=== PATIENT | male | born 1970 | race Caucasian/White ===

== ENCOUNTER 2017-01-23 12:33 | Inpatient (IN) | payer OTHER ==
[2017-01-23 13:17] LABS: Hematocrit 49 % (42-52); Hemoglobin 16.4 g/dl (14.0-18.0); Mean Corpuscular HGB Conc 34 g/dl (31-36); Mean Corpuscular Hemoglobin 31 pg (27-31); Mean Corpuscular Volume 90 fL (80-94); Mean Platelet Volume 9 um3 (7.4-10.4); Red Blood Count 5.37 10^6/ul (4.0-5.4); Red Cell Distribution Width 14 % (10.5-15); White Blood Count 10.2 10^3/ul (3.5-10.8)
[2017-01-23 13:28] LABS: Urine Bilirubin Negative (Negative); Urine Glucose Negative (Negative); Urine Nitrite Negative (Negative)
[2017-01-23 13:30] LABS: ALT 70 U/L (7-52); AST 48 U/L (13-39); Albumin 4.9 g/dL (3.2-5.2); Alkaline Phosphatase 98 U/L (34-104); Anion Gap 10 mmol/L (2-11); BUN/Creatinine Ratio 13.6 (8-20); Blood Urea Nitrogen 15 mg/dL (6-24); CO2 Carbon Dioxide 25 mmol/L (22-32); Calcium 10.3 mg/dL (8.6-10.3); Chloride 103 mmol/L (101-111); EGFR African American 91.9 (>60); EGFR Non-African American 71.4 (>60); Globulin 3.2 g/dL (2-4); Glucose 114 mg/dL (70-100); Potassium 3.9 mmol/L (3.5-5.0); Sodium 138 mmol/L (133-145); Total Protein 8.1 g/dL (6.4-8.9)
[2017-01-23 13:32] LABS: Benzodiazepine Urine Screen Presumptive Positive (None Detect)
[2017-01-23 13:53] LABS: Acetaminophen < 15 mcg/mL; Alcohol < 10 mg/dL (<10); Salicylate < 2.50 mg/dL (<30)
--- NOTE | 2017-01-23 13:58 | RAD ---
HISTORY: Altered mental status COMPARISONS: MRI of the brain dated December 30, 2016 TECHNIQUE: Multiple contiguous axial CT scans were obtained of the head without intravenous contrast. FINDINGS: HEMORRHAGE/INFARCT: There is no hemorrhage or acute infarct. MASSES/SHIFT: There is no mass or shift. EXTRA-AXIAL SPACES: There are no extra-axial fluid collections. SULCI AND VENTRICLES: The sulci and ventricles are normal in size and position for the patient's stated age. CEREBRUM: There are no focal parenchymal abnormalities. BRAINSTEM: There are no focal parenchymal abnormalities. CEREBELLUM: There are no focal parenchymal abnormalities. VESSELS: The vessels are grossly normal. PARANASAL SINUSES: The paranasal sinuses are clear. ORBITS: The orbits are unremarkable. BONES AND SOFT TISSUE: No bone or soft tissue abnormalities are noted. OTHER: None IMPRESSION: NO ACUTE INTRACRANIAL PATHOLOGY.
[2017-01-23 14:06] LABS: TSH (Thyroid Stimulating Horm) 0.86 mcIU/mL (0.34-5.60)
[2017-01-23] MEDS ORDERED: Acetaminophen TAB* 325 MG PO PRN (15:38)
[2017-01-23] MEDS ORDERED: Al Hydrox/Mg Hydrox/Simet LIQ* 30 ML UDC PO PRN (15:38)
--- NOTE | 2017-01-23 15:48 | ED ---
Tameka Butler SooYoung, scribed for Rene Amado MD on 01/23/17 at 1318 . Psychiatric Complaint - HPI Summary HPI Summary: LEVEL 5 CAVEAT: HPI LIMITED DUE TO PT CONDITION, UNRELIABLE NARRATOR. A 46 y/o M presents to ED for MHE. Pt's parents brought him to [facility] but are not in room at this time. Pt was last seen in [facility] on 12/18/16 when he was admitted to the U, released on 01/10/17. Pt states "feeling absolutely fine." He denies SI, HI. PMHx: polysubstance, alcoholism. Denies PMHx. He's had surgeries but did not specify. When asked why was he is in the ED, pt states his parents wanted "notes." Per nurse's note: Pt eloped from [facility] today. - History Of Current Complaint Chief Complaint: EDMentalHealth Time Seen by Provider: 01/23/17 13:03 Hx Obtained From: Patient, Family/Heel Packer, Medical Records Related History: Positive For: Prior Psychiatric Issues - Allergies/Home Medications Allergies/Adverse Reactions: Allergies Allergy/AdvReac Type Severity Reaction Status Date / Time No Known Drug Allergy Allergy See Comment Verified 12/20/16 13:34 Home Medications: Home Medications buPROPion SR TAB* [Wellbutrin SR TAB*] 100 mg PO BID 01/23/17 [History Confirmed 01/23/17] PMH/Surg Hx/FS Hx/Imm Hx Previously Healthy: No Cardiovascular History: Reports: Other Cardiovascular Problems/Disorders - Hx WPW Denies: Hx Pacemaker/ICD Sensory History: Denies: Hx Cataracts, Hx Contacts or Glasses, Hx Hearing Aid Opthamlomology History: Denies: Hx Cataracts, Hx Contacts or Glasses Psychiatric History: Reports: Hx Depression, Hx Bipolar Disorder, Hx of Violent Episodes Against Others, Hx Substance Abuse, Other Psychiatric Issues/Disorders - Hx polysubstance abuse Denies: Hx Panic Disorder - Surgical History Surgery Procedure, Year, and Place: appendectomy; right shoulder ORIF; left ankle ORIF Infectious Disease History: Unable to Obtain/Confirm Infectious Disease History: Denies: Traveled Outside the [place] in Last 30 Days - Family History Known Family History: Positive: Cardiac Disease, Hypertension, Diabetes, Other - [place] - Social History Occupation: Unemployed Lives: With Family Alcohol Use: Daily - heavy daily alcohol use Alcohol Amount: "A few drinks ", unable to say frequency or how many Hx Substance Use: No Substance Use Type: Reports: None Hx Tobacco Use: Yes Smoking Status (MU): Current Every Day Smoker Review of Systems - ROS Summary Review of Systems Summary: LEVEL 5 CAVEAT: ROS LIMITED DUE TO PT CONDITION, UNRELIABLE NARRATOR Negative: Fever Negative: Other - denies: [place], [place] All Other Systems Reviewed And Are Negative: No Physical Exam Triage Information Reviewed: Yes Vital Signs On Initial Exam: Initial Vitals Temp Pulse Resp BP Pulse Ox 98.9 F 95 16 108/80 96 01/23/17 13:02 01/23/17 13:02 01/23/17 13:02 01/23/17 13:02 01/23/17 13:02 Vital Signs Reviewed: Yes Appearance: Positive: Well-Appearing, No Pain Distress Skin: Positive: Warm Head/Face: Positive: Normal Head/Face Inspection Eyes: Positive: EOMI Respiratory/Lung Sounds: Positive: Clear to Auscultation, Breath Sounds Present Cardiovascular: Positive: RRR. Negative: Murmur Abdomen Description: Positive: Nontender Musculoskeletal: Positive: Strength/ROM Intact Neurological: Positive: Sensory/Motor Intact, CN Intact II-III Psychiatric: Positive: Other - the patient is a little agitated, but cooperative , and he does follow all commands, but in coversation seems to thought block Diagnostics - Vital Signs Vital Signs Temp Pulse Resp BP Pulse Ox 01/23/17 13:02 98.9 F 95 16 108/80 96 - Laboratory Lab Results: Lab Results 01/23/17 01/23/17 01/23/17 Range/Units 12:51 12:56 12:56 WBC 10.2 (3.5-10.8) 10^3/ul RBC 5.37 (4.0-5.4) 10^6/ul Hgb 16.4 (14.0-18.0) g/dl Hct 49 (42-52) % MCV 90 (80-94) fL MCH 31 (27-31) pg MCHC 34 (31-36) g/dl RDW 14 (10.5-15) % Plt Count 198 (150-450) 10^3/ul MPV 9 (7.4-10.4) um3 Neut % (Auto) 76.8 (38-83) % Lymph % (Auto) 14.3 L (25-47) % Weld % (Auto) 7.0 (1-9) % Eos % (Auto) 1.1 (0-6) % Baso % (Auto) 0.8 (0-2) % Absolute Neuts (auto) 7.8 H (1.5-7.7) 10^3/ul Absolute Lymphs (auto) 1.5 (1.0-4.8) 10^3/ul Absolute Monos (auto) 0.7 (0-0.8) 10^3/ul Absolute Eos (auto) 0.1 (0-0.6) 10^3/ul Absolute Basos (auto) 0.1 (0-0.2) 10^3/ul Absolute Nucleated RBC 0.01 10^3/ul Nucleated RBC % 0.1 Sodium 138 (133-145) mmol/L Potassium 3.9 (3.5-5.0) mmol/L Chloride 103 (101-111) mmol/L Carbon Dioxide 25 (22-32) mmol/L Anion Gap 10 (2-11) mmol/L BUN 15 (6-24) mg/dL Creatinine 1.10 (0.67-1.17) mg/dL Est GFR ( Amer) 91.9 (>60) Est GFR (Non-Af Amer) 71.4 (>60) BUN/Creatinine Ratio 13.6 (8-20) Glucose 114 H (70-100) mg/dL Calcium 10.3 (8.6-10.3) mg/dL Total Bilirubin 1.00 (0.2-1.0) mg/dL AST 48 H (13-39) U/L ALT 70 H (7-52) U/L Alkaline Phosphatase 98 (34-104) U/L Total Protein 8.1 (6.4-8.9) g/dL Albumin 4.9 (3.2-5.2) g/dL Globulin 3.2 (2-4) g/dL Albumin/Globulin Ratio 1.5 (1-3) TSH Pending Urine Color Yellow Urine Appearance Clear Urine pH 5.0 (5-9) Ur Specific Spencer 1.018 (1.010-1.030) Urine Protein Negative (Negative) Urine Ketones Trace H (Negative) Urine Blood Negative (Negative) Urine Nitrate Negative (Negative) Urine Bilirubin Negative (Negative) Urine Urobilinogen Negative (Negative) Ur Leukocyte Esterase Negative (Negative) Urine Glucose Negative (Negative) Urine Ascorbic Acid * H (Negative) Salicylates Pending Acetaminophen Pending Serum Alcohol Pending Result Diagrams: 01/23/17 12:56 01/23/17 12:56 Lab Statement: Any lab studies that have been ordered have been reviewed, and results considered in the medical decision making process. - CT BRAIN CT CT Interpretation: No Acute Changes - IMPRESSION: No acute intracranial pathology. ED physician has reviewed this radiology report and agrees. CT Interpretation Completed By: Radiologist - EKG 1315 Cardiac Rate: NL EKG Rhythm: Sinus Rhythm - [address] Segment: Normal EKG Interpretation: nml PA, QRS, QT, no STEMI Course/Dx - Course Course Of Treatment: A 46 y/o M presents to ED for MHE. Pt's parents brought him to [facility] but are not in room at this time. Pt was last seen in [facility] on when he was admitted to the [facility], released on 01/10/17. Pt states "feeling absolutely fine." He denies SI, HI. PMHx: polysubstance, alcoholism. Denies PMHx. He's had surgeries but did not specify. When asked why was he is in the ED , pt states his parents wanted "notes." Per nurse's note: Pt eloped from [facility] today. EKG is NSR, no STEMI. Brain CT shows no acute pathology. Pt is medically clear for MHE at 1401. - Differential Dx/Clinical Impression Provider Diagnosis: Psychosis Discharge - Discharge Plan Condition: Good Disposition: PSYCHIATRIC FACILITY-[facility] Referrals: Chaka Koo DO [Primary Care Provider] - The documentation as recorded by the Tameka parker SooYoung accurately reflects the service I personally performed and the decisions made by me, Rene Amado MD.
[2017-01-23] MEDS: Gabapentin CAP(*) 300 MG PO SCH (21:15)
[2017-01-23] MEDS: OLANzapine TAB* 10 MG PO SCH (21:16)
[2017-01-24] MEDS: Gabapentin CAP(*) 300 MG PO SCH ×2 (08:27→13:51)
[2017-01-24] MEDS: Citalopram TAB* 20 MG PO SCH (08:28)
[2017-01-24] MEDS: Haloperidol TAB* 5 MG PO PRN ×3 (08:28→20:23)
[2017-01-24] MEDS: Nadolol TAB* 40 MG PO SCH (08:28)
[2017-01-24] MEDS ORDERED: Nicotine GUM* 2 MG PO PRN (13:09)
[2017-01-24] MEDS: Nicotine Inhaler* 10 MG AMP INH PRN ×2 (13:54→16:25)
[2017-01-24] MEDS ORDERED: Mouth Piece, Nicotine* 1 EACH CARTRIDGE ONE (13:56)
[2017-01-24] MEDS ORDERED: Mouth Piece, Nicotine* 1 EACH CARTRIDGE INH ONE (14:00)
--- NOTE | 2017-01-24 18:52 | RAD ---
Indication: Psychiatric disorder nonspecified. Comparison: January 23, 2017 CT. Technique: Noncontrast CT vertex of skull through foramen magnum. Report: The sulci, ventricles, and basal cisterns are normal for age. Sales matter white matter differentiation is preserved without evidence for edema. No intra or extra axial hemorrhage is detected. Unremarkable visualized orbital contents. Negative for calvarial or skull base fracture. Mild RIGHT frontal scalp edema without change. Retained secretions or mucosal thickening at the RIGHT sphenoid sinus without change. Negative for paranasal sinus fluid levels. Clear visualized mastoid air spaces. IMPRESSION: 1. No traumatic brain injury or acute intracranial process evident. 2. Mild RIGHT frontal scalp edema without change. 3. Mucosal sinus disease versus retained secretions at the RIGHT sphenoid sinus without change.
[2017-01-24] MEDS: Gabapentin CAP(*) 100 MG PO SCH (20:22)
[2017-01-24] MEDS: OLANzapine TAB* 10 MG PO SCH (20:23)
--- NOTE | 2017-01-24 23:13 | HP ---
PSYCHIATRIC HISTORY AND PHYSICAL: DATE OF ADMISSION: 01/23/17 JUSTIFICATION FOR ADMISSION: The patient is in need of 24-hour supervision and care secondary to confusion, agitation, and inability to care for himself in a less restrictive setting. CHIEF COMPLAINT: "I think I took some Valium, I am not going to do that anymore." HISTORY OF PRESENT ILLNESS: The patient is a 46-year-old white male with a history of chronic substance abuse disorders and a recent history of bipolar disorder, who was just discharged from the behavioral science unit on 01/10/17, who now arrives back on 9.41 status secondary to bizarre confused behavior with inability to care for himself. Apparently, the patient had been at [facility] on the morning of admission and had run away when he realized that they were planning on transferring him to [facility]. From there, his parents were able to locate him in the community and drive him back to [facility]. According to his parents, he appeared fine on Friday and then was unreachable Friday and Friday showing up at their house on the morning of admission after walking 2 miles without issues and no jacket on. He kept making the statement "read my furnace" over and over again and this is when they decided to bring him back to the hospital. He presented as highly confused, not able to complete sentences or communicate even single words in a coherent fashion. When he was asked where he was, he responded that he was in an ambulance. During his initial observation, he was minimizing of symptoms and declining the offer of admission. We were able to reach his current roommate, a woman named Seema, who indicated that the patient had smelled like alcohol on Friday and then had slept most of the day on Friday and Friday. She observed that he did wake up on Friday for 2 hours, vomited on the floor, and then went back to sleep. The patient was not easily aroused and when woken, felt right back to sleep. On the morning of admission, the patient woke up again and threw up and was confused. We asked her to look in his room for his medications and it was difficult for her to say whether anything was missing given the fact that many of his pills were mixed together. She later called back stating that she had found a bottle of a drug called Phenibut, which is an anxiolytic that the patient had ordered online on . Although there were 400 total servings in the bottle, the bottle was already two-thirds gone. She suspects that the patient was abusing this drug. A later review of online research indicates that Phenibut is a sedative that is available in health food stores. It is similar to the prescription medication gabapentin. When I interviewed the patient, he is confused and distractible. He minimizes his use of Phenibut, but does tell me that he was abusing Valium, which he bought from a friend. I asked him if he is willing to go rehab at this time and he denies this. The patient denies any active mood symptoms including depression, anxiety, or giuseppe. It is notable that when he was discharged on 01/10/17 from my service, the plan was for him to go to the [facility] in [place], [place]. Unfortunately when he arrived there, he declined to sign himself involuntarily and called a friend to have him pick him up and returned to the [facility] where he has staying with his friend, Seema. PAST PSYCHIATRIC HISTORY: The patient was admitted on my service here at [facility] from 12/18/16 to 01/10/17. Prior to this, he was seen at the [facility] by a physician's fundraising assistant named, "Viki Li." His most recent diagnosis is bipolar disorder. He denies any past history of suicide attempts. PAST MEDICAL/SURGICAL HISTORY: The patient has Mlsrq-Upctmugtt-Hrgak syndrome. He has also had surgery on his right shoulder with a metal plate. In addition , he has a recent history of acute sinusitis. MEDICATIONS: Currently are: 1. Nadolol 40 mg p.o. daily. 2. Gabapentin 600 mg p.o. t.i.d. 3. Citalopram 20 mg p.o. daily. 4. Olanzapine 10 mg p.o. q.h.s. ALLERGIES: He has no known drug allergies. FAMILY HISTORY: The patient's maternal uncle committed suicide at the age of 16. The patient also has paternal cousins with alcoholism. SUBSTANCE ABUSE HISTORY: The patient had a DWI around 2008 or 2009 and had gone to drug court as a result of this and was sent to rehab. He has been to rehab twice at [facility] in [place] and once to the rehab at [facility] in [place], [place]. Three and a half years ago, he was in a alf house. The patient abuses cannabis infrequently. Ten years ago, he had problems with cocaine and heroin, but apparently has not been using these recently. He is an on-and-off tobacco abuser, who is currently xlww-y-oyzy-a-day smoker. He does admit to infrequent use of methamphetamines. He also will abuse benzodiazepines and another sedative hypnotics that he gets either from friends or purchases online. SOCIAL HISTORY: The patient was born in [place], but moved to [place] at the age of 15. From there, he moved to [place] along with his parents and then moved to [place] in 1999. He does have bachelor's degree from [employer] [place] [employer] with a major in philosophy. He was once, but at the age of 26. He has no children. The patient worked for a long time in computer repair and in software engineering. His most recent job was at the [employer], which he stopped working at approximately 2 years ago. 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 He does receive Medicaid. He is currently single, but he is sexually active with a female friend. He has been diagnosed in the past with herpes simplex, type 1. The patient is not mu-ism, but he grew up [employer]. He does have a legal history of DWI in 2009, but also a history of trespassing while intoxicated for which he served 3 months in the [facility]. REVIEW OF SYSTEMS: The patient denies headache or double vision. He denies sore throat, cough, chest pain, cough, or difficulty breathing. He denies abdominal pain, nausea, vomiting, diarrhea, or constipation. He denies difficulty ambulating, enlarged lymph nodes, rashes, fevers, or changes in weight. PHYSICAL EXAMINATION VITALS: Blood pressure 136/89, heart rate 63, respiratory rate 16, temperature 97.6 degrees Fahrenheit, oxygen saturations are 98% on room air. HEENT: Head is normocephalic, atraumatic. NECK: Supple. CHEST: Clear to auscultation bilaterally. ABDOMEN: Soft and nontender. MUSCULOSKELETAL: Reveals no sign of edema. NEUROLOGICAL: He is grossly intact with no focal deficits. SKIN: Warm and dry. MENTAL STATUS EXAMINATION: The patient is a middle-aged white male wearing blue scrubs, who is disheveled walking around with a wide-based gait, appears to be somewhat irritable, but is otherwise cooperative. Speech is impoverished and he appears to be confused. His mood is somewhat irritable with a blunted affect. Thought process is disorganized. Thought content is significant for his desire to leave the hospital. He denies suicidal or homicidal ideations. He denies auditory or visual hallucinations. Insight and judgment are poor given his continued abuse of substances following his most recent discharge. Cognitively, he is awake but not particularly alert. He is disoriented to time , place, and situation. LABORATORY DATA: CBC is within normal limits. Complete metabolic panel demonstrates that his AST is elevated at 48, ALT elevated at 70. TSH normal at 0.86. Urinalysis is within normal limits. Urine toxicology is positive for benzodiazepines. DIAGNOSES: As follows: [place] I: Delirium secondary to sedative hypnotic, alcohol use disorder by history, bipolar disorder by history. [place] II: Deferred. [place] III: Wgwvl-Ciikrjfmv-Yctty syndrome, history of right shoulder surgery, history of recurrent sinusitis. [place] IV: Moderate primary support and financial stressors. [place] V: At this time is 25. IMPRESSION: The patient is a 46-year-old white male with a history of alcoholism and another substance abuse issues as well as bipolar disorder, who was recently discharged from [facility] on 01/10/17, who now returns appearing to be grossly confused and unable to account for his actions. We understand through his roommate that he has purchased a bottle of a sedative hypnotic that is available over-the- counter and he has already consumed two-thirds of a 400- tablet supply despite the fact that he only received this on 01/15/17. The patient is only stating that he has been abusing Valium, but it is clear that he has been abusing sedatives and hypnotics as well. He is declining the offer of inpatient rehab at this time. PLAN: The patient is readmitted to the adult behavioral health unit where he is placed on q.15-minute checks for his own safety. We have resumed his medications including nadolol, gabapentin which we will reduce to 200 mg t.i.d. , olanzapine 10 mg nightly, and citalopram 20 mg daily. We will try to get further collateral information from his roommate, Seema, as well as his parents, Tito and Leonor Fields. If we could have them come in for a family meeting, perhaps we could try to persuade the patient to change his mind and actually accept inpatient rehab at this time. While he is here, he is certainly encouraged to avail himself of all milieu activities including individual and group psychotherapies. I will get another head CT to rule out any structural problems and to make sure that his sinusitis is resolved. [id number]/[facility] #: [id number] [place]
[2017-01-25] MEDS: Nicotine Inhaler* 10 MG AMP INH PRN ×2 (06:50→09:08)
[2017-01-25] MEDS: Haloperidol TAB* 5 MG PO PRN ×2 (06:50→13:03)
[2017-01-25] MEDS: Gabapentin CAP(*) 100 MG PO SCH ×3 (08:34→20:11)
[2017-01-25] MEDS: Nadolol TAB* 40 MG PO SCH (08:35)
[2017-01-25] MEDS: Citalopram TAB* 20 MG PO SCH (08:35)
[2017-01-25] MEDS ORDERED: Influenza VAC *QUAD* 2017-18* 0.5 ML SYRINGE IM ONE (09:00)
[2017-01-25] MEDS: OLANzapine TAB* 10 MG PO SCH (20:12)
[2017-01-26] MEDS: Citalopram TAB* 20 MG PO SCH (07:54)
[2017-01-26] MEDS: Gabapentin CAP(*) 100 MG PO SCH ×3 (07:54→20:47)
[2017-01-26] MEDS: Nadolol TAB* 40 MG PO SCH (07:55)
[2017-01-26] MEDS: Nicotine Inhaler* 10 MG AMP INH PRN (10:24)
[2017-01-26] MEDS: Haloperidol TAB* 5 MG PO PRN (11:54)
--- NOTE | 2017-01-26 17:31 | PN ---
Subjective - Subjective Service Type: 03614 Hosp care 15 min low complexity Subjective: Yan says he is feeling much better than yesterday. Yesterday he thought he was experiencing withdrawal symptoms from decreased doses of Gabapentin. Denies hallucinations, delusions, SI or HI. Ambivalent about attending rehab post discharge but may go to AA meetings. Objective - Appearance Appearance: Well Developed/Nourished Dysmorphic Features: No Hygiene: Normal Grooming: Fairly Well Kept - Behavior Psychomotor Activities: Normal Exhibits Abnormal Movement: No - Attitude and Relatedness Attitude and Relatedness: Appropriate Eye Contact: Good - Speech Quality: Unpressured Latencies: Normal Quantity: Appropriate - Mood Patient's Decription of Mood: "Fine" - Affect Observed Affect: Constricted Affect Consistent with: Dysphoria - Thought Process Patient's Thought Process: Coherent, Goal Directed Thought Content: No Passive Wish, No Suicidal Planning, No Homicidal Ideation, No Paranoid Ideation - Sensorium Experiencing Hallucinations: No, Sensorium is Clear Type of Hallucinations: Visual: No, Auditory: No, Command: No - Level of Consciousness Level of Consciousness: Alert Orientation: Yes Intact, Yes Orientated to Time, Yes Orientated to Place, Yes Orientated to Person - Impulse Control Impulse Control: Intact - Insight and Judgement Insight and Judgement: Fair - Group Participation Particating in Group Activities: Yes - Medication Management Medication Management Adherence: Yes Assessment - Assessment Merits Inpatient Hospitalization: For Stabilization, Consolidate Improvements, For Discharge Planning Plan - Plan Treatment Plan: Name: YAN LEE Birthdate: 1970 [id number] Continued Medication Management: Continue Outpt Medication Medications: Current Medications Acetaminophen (Tylenol Tab*) 650 mg PO Q4H PRN PRN Reason: for pain; or Temp >101 F Last Admin: 01/25/17 12:20 Dose: 650 mg Al Hydrox/Mg Hydrox/Simethicone (Maalox Plus*) 30 ml PO Q4H PRN PRN Reason: INDIGESTION Last Admin: 01/25/17 12:22 Dose: 30 ml Citalopram Hydrobromide (Celexa Tab*) 20 mg PO DAILY [facility] Last Admin: 01/26/17 07:54 Dose: 20 mg Gabapentin (Neurontin Cap(*)) 200 mg PO TID [facility] Last Admin: 01/26/17 13:55 Dose: 200 mg Haloperidol (Haldol Tab*) 5 mg PO Q6H PRN PRN Reason: AGITATION Last Admin: 01/26/17 11:54 Dose: 5 mg Nadolol (Corgard Tab*) 40 mg PO DAILY [facility] Last Admin: 01/26/17 07:55 Dose: 40 mg Nicotine (Nicotine Inhaler*) 10 mg INH Q2H PRN PRN Reason: CRAVING Last Admin: 01/26/17 10:24 Dose: 10 mg Nicotine Polacrilex (Nicotine Gum*) 2 mg PO Q2H PRN PRN Reason: CRAVING Last Admin: 01/26/17 13:55 Dose: 2 mg Olanzapine (Zyprexa Tab*) 10 mg PO BEDTIME ESTEBAN Last Admin: 01/25/17 20:12 Dose: 10 mg - Discharge Plan Discharge Plan: Drug/Alcohol Rehab
[2017-01-26] MEDS: OLANzapine TAB* 10 MG PO SCH (20:46)
[2017-01-27] MEDS: Gabapentin CAP(*) 100 MG PO SCH ×2 (08:23→13:16)
[2017-01-27] MEDS: Nadolol TAB* 40 MG PO SCH (08:24)
[2017-01-27] MEDS: Citalopram TAB* 20 MG PO SCH (08:24)
--- NOTE | 2017-01-27 11:58 | PN ---
[facility]: Group Therapy Note - Service Type Service Type: 47835 Group Psychotherapy - Cognitive Behavioral Group Therapy ( CBT):Patient was attentive and participatory in CBT programming this morning, and remained in good behavioral control. Patient expressed positive insights regarding relevant treatment interventions and goals.
--- NOTE | 2017-01-27 14:34 | PN ---
Subjective - Subjective Service Type: 63653 Hosp care 15 min low complexity Subjective: Yan appears to be more coherent today, has been attending groups and is displaying neither confusion nor paranoid thinking. I spoke with his friend, Seema, with whom he was staying between admissions, and she indicates that his needs are greater than what she can accommodate, and that he can no longer stay with her. I also spoke with his mother, Leonor Lee, who is steadfastly not allowing him to return to live on any of her properties in his current state. Both sources of collateral are strongly supportive of transferring Yan to an inpatient substance abuse facility after psychiatric treatment is complete. Yan is confronted with this information and is agreeable with rehab referral. He complains of poor sleep since his gabapentin was lowered but has no other acute problems. Objective - Appearance Appearance: Well Developed/Nourished Dysmorphic Features: No Hygiene: Normal Grooming: Fairly Well Kept - Behavior Psychomotor Activities: Normal Exhibits Abnormal Movement: No - Attitude and Relatedness Attitude and Relatedness: Cooperative Eye Contact: Fair - Speech Quality: Unpressured Latencies: Normal Quantity: Appropriate - Mood Patient's Decription of Mood: "Fine" - Affect Observed Affect: Fair Affect Consistent with: Euthymia - Thought Process Patient's Thought Process: Coherent Thought Content: No Passive Wish, No Suicidal Planning, No Homicidal Ideation, No Paranoid Ideation - Sensorium Experiencing Hallucinations: No, Sensorium is Clear Type of Hallucinations: Visual: No, Auditory: No, Command: No - Level of Consciousness Level of Consciousness: Alert Orientation: Yes Intact, Yes Orientated to Time, Yes Orientated to Place, Yes Orientated to Person - Impulse Control Impulse Control: Tenuous - Insight and Judgement Insight and Judgement: Fair - Group Participation Particating in Group Activities: Yes - Medication Management Medication Management Adherence: Yes Assessment - Assessment Merits Inpatient Hospitalization: For Immediate Safety, For Stabilization 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 , white male with a history of alcohol and illicit substance abuse, as well as putative bipolar disorder, recently [facility], readmitted to the unit secondary to confusion and psychosis in the setting of overdose on OTC sedative-hypnotics purchased online. Plan - Plan Treatment Plan: Name: YAN LEE Birthdate: 1970 [id number] We have resumed medications such as gabapentin, citalopram, nadolol and olanzapine. Will increase gabapentin to 300mg PO TID. Patient willing to be transferred to inpatient drug rehab. Continue inpatient care. Continued Medication Management: Continue Outpt Medication Medications: Current Medications Acetaminophen (Tylenol Tab*) 650 mg PO Q4H PRN PRN Reason: for pain; or Temp >101 F Last Admin: 01/25/17 12:20 Dose: 650 mg Al Hydrox/Mg Hydrox/Simethicone (Maalox Plus*) 30 ml PO Q4H PRN PRN Reason: INDIGESTION Last Admin: 01/25/17 12:22 Dose: 30 ml Citalopram Hydrobromide (Celexa Tab*) 20 mg PO DAILY [facility] Last Admin: 01/27/17 08:24 Dose: 20 mg Haloperidol (Haldol Tab*) 5 mg PO Q6H PRN PRN Reason: AGITATION Last Admin: 01/26/17 11:54 Dose: 5 mg Nadolol (Corgard Tab*) 40 mg PO DAILY [facility] Last Admin: 01/27/17 08:24 Dose: 40 mg Nicotine (Nicotine Inhaler*) 10 mg INH Q2H PRN PRN Reason: CRAVING Last Admin: 01/26/17 10:24 Dose: 10 mg Nicotine Polacrilex (Nicotine Gum*) 2 mg PO Q2H PRN PRN Reason: CRAVING Last Admin: 01/26/17 13:55 Dose: 2 mg Olanzapine (Zyprexa Tab*) 10 mg PO BEDTIME [facility] Last Admin: 01/26/17 20:46 Dose: 10 mg - Discharge Plan Discharge Plan: Drug/Alcohol Rehab
[2017-01-27] MEDS: OLANzapine TAB* 10 MG PO SCH (21:55)
[2017-01-27] MEDS: Gabapentin CAP(*) 300 MG PO SCH (21:55)
[2017-01-28] MEDS: Gabapentin CAP(*) 300 MG PO SCH (08:06)
[2017-01-28] MEDS: Nadolol TAB* 40 MG PO SCH (08:07)
[2017-01-28] MEDS: Citalopram TAB* 20 MG PO SCH (08:07)
[2017-01-28] MEDS: Nicotine Inhaler* 10 MG AMP INH PRN (08:07)
--- NOTE | 2017-01-28 13:57 | PN ---
Subjective - Subjective Service Type: [id number] Hosp care 15 min low complexity Subjective: Yan is calm, cooperative, oriented and visible on the unit. He has agreed to referral to one of the surrounding inpatient drug rehab programs in the region, but is skeptical about getting accepted in a timely manner. "I know it' s getting colder outside and it's always harder to find a bed when that happens. " He denies any acute complaints today and feels that he's ready for discharge to a lower level of care whenever a disposition can be made. He denies SI or HI and there is no evidence of further psychosis. Objective - Appearance Appearance: Well Developed/Nourished Dysmorphic Features: No Hygiene: Normal Grooming: Fairly Well Kept - Behavior Psychomotor Activities: Normal Exhibits Abnormal Movement: No - Attitude and Relatedness Attitude and Relatedness: Cooperative Eye Contact: Fair - Speech Quality: Unpressured Latencies: Normal Quantity: Appropriate - Mood Patient's Decription of Mood: "Good" - Affect Observed Affect: Fair Affect Consistent with: Euthymia - Thought Process Patient's Thought Process: Coherent Thought Content: No Passive Wish, No Suicidal Planning, No Homicidal Ideation, No Paranoid Ideation - Sensorium Experiencing Hallucinations: No, Sensorium is Clear Type of Hallucinations: Visual: No, Auditory: No, Command: No - Level of Consciousness Level of Consciousness: Alert Orientation: Yes Intact, Yes Orientated to Time, Yes Orientated to Place, Yes Orientated to Person - Impulse Control Impulse Control: Tenuous - Insight and Judgement Insight and Judgement: Fair - Group Participation Particating in Group Activities: Yes - Medication Management Medication Management Adherence: Yes Assessment - Assessment Merits Inpatient Hospitalization: Consolidate Improvements, Pending Safe DC Plan 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 , white male with a history of alcohol and illicit substance abuse, as well as putative bipolar disorder, recently [facility] from the [facility] on [facility], readmitted to the unit secondary to confusion and psychosis in the setting of overdose on OTC sedative-hypnotics purchased online. Plan - Plan Treatment Plan: Name: YAN LEE Birthdate: 1970 [id number] We have resumed medications such as gabapentin, citalopram, nadolol and olanzapine. Will increase gabapentin to 400mg PO TID. Patient willing to be transferred to inpatient drug rehab. Continue inpatient care. Continued Medication Management: Continue Outpt Medication Medications: Current Medications Acetaminophen (Tylenol Tab*) 650 mg PO Q4H PRN PRN Reason: for pain; or Temp >101 F Last Admin: 01/25/17 12:20 Dose: 650 mg Al Hydrox/Mg Hydrox/Simethicone (Maalox Plus*) 30 ml PO Q4H PRN PRN Reason: INDIGESTION Last Admin: 01/25/17 12:22 Dose: 30 ml Citalopram Hydrobromide (Celexa Tab*) 20 mg PO DAILY [facility] Last Admin: 01/28/17 08:07 Dose: 20 mg Haloperidol (Haldol Tab*) 5 mg PO Q6H PRN PRN Reason: AGITATION Last Admin: 01/26/17 11:54 Dose: 5 mg Nadolol (Corgard Tab*) 40 mg PO DAILY [facility] Last Admin: 01/28/17 08:07 Dose: 40 mg Nicotine (Nicotine Inhaler*) 10 mg INH Q2H PRN PRN Reason: CRAVING Last Admin: 01/28/17 08:07 Dose: 10 mg Nicotine Polacrilex (Nicotine Gum*) 2 mg PO Q2H PRN PRN Reason: CRAVING Last Admin: 01/26/17 13:55 Dose: 2 mg Olanzapine (Zyprexa Tab*) 10 mg PO BEDTIME [facility] Last Admin: 01/27/17 21:55 Dose: 10 mg - Discharge Plan Discharge Plan: Drug/Alcohol Rehab
[2017-01-28] MEDS: Gabapentin CAP(*) 400 MG PO SCH ×2 (14:07→20:36)
--- NOTE | 2017-01-28 14:57 | PN ---
MHU: Group Therapy Note - Service Type Service Type: [id number] Group Psychotherapy - Cognitive Behavioral Group Therapy ( CBT):Patient was attentive and participatory in CBT programming this morning, and remained in good behavioral control. Patient expressed positive insights regarding relevant treatment interventions and goals.
[2017-01-28] MEDS: OLANzapine TAB* 10 MG PO SCH (20:36)
[2017-01-29] MEDS: Gabapentin CAP(*) 400 MG PO SCH ×3 (08:27→21:12)
[2017-01-29] MEDS: Nadolol TAB* 40 MG PO SCH (08:27)
[2017-01-29] MEDS: Citalopram TAB* 20 MG PO SCH (08:27)
--- NOTE | 2017-01-29 11:39 | PN ---
MHU: Group Therapy Note - Service Type Service Type: [id number] Group Psychotherapy - Cognitive Behavioral Group Therapy ( CBT):Patient was attentive and participatory in CBT programming this morning, and remained in good behavioral control. Patient expressed positive insights regarding relevant treatment interventions and goals.
--- NOTE | 2017-01-29 12:23 | PN ---
Subjective - Subjective Service Type: 11094 Hosp care 15 min low complexity Subjective: Yan is seen along with LYDIA Tamara for routine follow up. He has been accepted for transfer at the [facility] rehab in [place], [place] with bed availability on February 05. The patient is confronted about his choice to walk out of [facility] earlier this month, after he had been discharged from the [facility] to that facility. "I hear what you guys are saying and, right now, that's not how I feel. I want to go to the program. It wasn't my first choice. I was hoping I could do this as an outpatient, but I'm back here now and I have to deal with that." He denies SI or HI. Objective - Appearance Appearance: Well Developed/Nourished Dysmorphic Features: No Hygiene: Normal Grooming: Fairly Well Kept - Behavior Psychomotor Activities: Normal Exhibits Abnormal Movement: No - Attitude and Relatedness Attitude and Relatedness: Cooperative Eye Contact: Fair - Speech Quality: Unpressured Latencies: Normal Quantity: Appropriate - Mood Patient's Decription of Mood: "Okay" - Affect Observed Affect: Fair Affect Consistent with: Euthymia - Thought Process Patient's Thought Process: Coherent Thought Content: No Passive Wish, No Suicidal Planning, No Homicidal Ideation, No Paranoid Ideation - Sensorium Experiencing Hallucinations: No, Sensorium is Clear Type of Hallucinations: Visual: No, Auditory: No, Command: No - Level of Consciousness Level of Consciousness: Alert Orientation: Yes Intact, Yes Orientated to Time, Yes Orientated to Place, Yes Orientated to Person - Impulse Control Impulse Control: Tenuous - Insight and Judgement Insight and Judgement: Fair - Group Participation Particating in Group Activities: Yes - Medication Management Medication Management Adherence: Yes Assessment - Assessment Merits Inpatient Hospitalization: Consolidate Improvements, Pending Safe DC Plan 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 , white male with a history of alcohol and illicit substance abuse, as well as putative bipolar disorder, recently discharged from the [facility] on 01/11/17, readmitted to the unit secondary to confusion and psychosis in the setting of overdose on OTC sedative-hypnotics purchased online. Plan - Plan Treatment Plan: Name: YAN LEE Birthdate: 1970 [id number] We have resumed medications such as gabapentin, citalopram, nadolol and olanzapine. Patient is awaiting transfer to [facility] inpatient rehab on Friday , February 05. Continue inpatient care. Continued Medication Management: Continue Outpt Medication Medications: Current Medications Acetaminophen (Tylenol Tab*) 650 mg PO Q4H PRN PRN Reason: for pain; or Temp >101 F Last Admin: 01/25/17 12:20 Dose: 650 mg Al Hydrox/Mg Hydrox/Simethicone (Maalox Plus*) 30 ml PO Q4H PRN PRN Reason: INDIGESTION Last Admin: 01/25/17 12:22 Dose: 30 ml Citalopram Hydrobromide (Celexa Tab*) 20 mg PO DAILY [facility] Last Admin: 01/29/17 08:27 Dose: 20 mg Gabapentin (Neurontin Cap(*)) 400 mg PO TID [facility] Last Admin: 01/29/17 08:27 Dose: 400 mg Haloperidol (Haldol Tab*) 5 mg PO Q6H PRN PRN Reason: AGITATION Last Admin: 01/26/17 11:54 Dose: 5 mg Nadolol (Corgard Tab*) 40 mg PO DAILY [facility] Last Admin: 01/29/17 08:27 Dose: 40 mg Nicotine (Nicotine Inhaler*) 10 mg INH Q2H PRN PRN Reason: CRAVING Last Admin: 01/28/17 08:07 Dose: 10 mg Nicotine Polacrilex (Nicotine Gum*) 2 mg PO Q2H PRN PRN Reason: CRAVING Last Admin: 01/26/17 13:55 Dose: 2 mg Olanzapine (Zyprexa Tab*) 10 mg PO BEDTIME [facility] Last Admin: 01/28/17 20:36 Dose: 10 mg - Discharge Plan Discharge Plan: Drug/Alcohol Rehab
[2017-01-29] MEDS: OLANzapine TAB* 10 MG PO SCH (21:12)
[2017-01-30] MEDS: Nadolol TAB* 40 MG PO SCH (08:02)
[2017-01-30] MEDS: Gabapentin CAP(*) 400 MG PO SCH ×3 (08:02→21:09)
[2017-01-30] MEDS: Citalopram TAB* 20 MG PO SCH (08:03)
[2017-01-30] MEDS: Nicotine Inhaler* 10 MG AMP INH PRN (11:46)
--- NOTE | 2017-01-30 12:26 | PN ---
Subjective - Subjective Service Type: [id number] Hosp care 15 min low complexity Subjective: Yan is in good spirits today and looking [place] [facility] "I got on the computer and looked at their website and it's making me feel better about going there. I even found a youtube video about a patient that went there and it really helped him, so that was good." He continues to deny SI or HI. Objective - Appearance Appearance: Well Developed/Nourished Dysmorphic Features: No Hygiene: Normal Grooming: Well Kept - Behavior Psychomotor Activities: Normal Exhibits Abnormal Movement: No - Attitude and Relatedness Attitude and Relatedness: Cooperative Eye Contact: Good - Speech Quality: Unpressured Latencies: Normal Quantity: Appropriate - Mood Patient's Decription of Mood: "Good" - Affect Observed Affect: Good Affect Consistent with: Euthymia - Thought Process Patient's Thought Process: Coherent Thought Content: No Passive Wish, No Suicidal Planning, No Homicidal Ideation, No Paranoid Ideation - Sensorium Experiencing Hallucinations: Yes Type of Hallucinations: Visual: No, Auditory: No, Command: No - Level of Consciousness Level of Consciousness: Alert Orientation: Yes Intact, Yes Orientated to Time, Yes Orientated to Place, Yes Orientated to Person - Impulse Control Impulse Control: Tenuous - Insight and Judgement Insight and Judgement: Fair - Group Participation Particating in Group Activities: Yes - Medication Management Medication Management Adherence: Yes Assessment - Assessment Merits Inpatient Hospitalization: Consolidate Improvements, Pending Safe DC Plan 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 , white male with a history of alcohol and illicit substance abuse, as well as putative bipolar disorder, recently [facility] the [facility] on 01/11/[facility], readmitted to the unit secondary to confusion and psychosis in the setting of overdose on OTC sedative-hypnotics purchased online. Plan - Plan Treatment Plan: Name: YAN LEE Birthdate: 1970 [id number] We have resumed medications such as gabapentin, citalopram, nadolol and olanzapine. Patient is awaiting [place] [facility] [place] Friday , [place] 05. Continue inpatient care. Continued Medication Management: Continue Outpt Medication Medications: Current Medications Acetaminophen (Tylenol Tab*) 650 mg PO Q4H PRN PRN Reason: for pain; or Temp >101 F Last Admin: 01/25/17 12:20 Dose: 650 mg Al Hydrox/Mg Hydrox/Simethicone (Maalox Plus*) 30 ml PO Q4H PRN PRN Reason: INDIGESTION Last Admin: 01/25/17 12:22 Dose: 30 ml Citalopram Hydrobromide (Celexa Tab*) 20 mg PO DAILY [facility] Last Admin: 01/30/17 08:03 Dose: 20 mg Gabapentin (Neurontin Cap(*)) 400 mg PO TID [facility] Last Admin: 01/30/17 08:02 Dose: 400 mg Haloperidol (Haldol Tab*) 5 mg PO Q6H PRN PRN Reason: AGITATION Last Admin: 01/26/17 11:54 Dose: 5 mg Nadolol (Corgard Tab*) 40 mg PO DAILY [facility] Last Admin: 01/30/17 08:02 Dose: 40 mg Nicotine (Nicotine Inhaler*) 10 mg INH Q2H PRN PRN Reason: CRAVING Last Admin: 01/30/17 11:46 Dose: 10 mg Nicotine Polacrilex (Nicotine Gum*) 2 mg PO Q2H PRN PRN Reason: CRAVING Last Admin: 01/26/17 13:55 Dose: 2 mg Olanzapine (Zyprexa Tab*) 10 mg PO BEDTIME [facility] Last Admin: 01/29/17 21:12 Dose: 10 mg - Discharge Plan Discharge Plan: Drug/Alcohol Rehab
[2017-01-30] MEDS: OLANzapine TAB* 10 MG PO SCH (21:10)
[2017-01-30] MEDS: Haloperidol TAB* 5 MG PO PRN (22:33)
[2017-01-31] MEDS: Gabapentin CAP(*) 400 MG PO SCH ×3 (09:16→20:29)
[2017-01-31] MEDS: Nadolol TAB* 40 MG PO SCH (09:17)
[2017-01-31] MEDS: Citalopram TAB* 20 MG PO SCH (09:17)
[2017-01-31] MEDS: Nicotine Inhaler* 10 MG AMP INH PRN (14:13)
[2017-01-31] MEDS: OLANzapine TAB* 10 MG PO SCH (20:29)
[2017-01-31] MEDS: Haloperidol TAB* 5 MG PO PRN (21:14)
[2017-02-01] MEDS: Citalopram TAB* 20 MG PO SCH (09:47)
[2017-02-01] MEDS: Nadolol TAB* 40 MG PO SCH (09:47)
[2017-02-01] MEDS: Gabapentin CAP(*) 400 MG PO SCH ×3 (09:47→21:16)
[2017-02-01] MEDS: Nicotine Inhaler* 10 MG AMP INH PRN (13:29)
[2017-02-01] MEDS: OLANzapine TAB* 10 MG PO SCH (21:17)
[2017-02-02] MEDS: Gabapentin CAP(*) 400 MG PO SCH ×3 (08:23→20:25)
[2017-02-02] MEDS: Citalopram TAB* 20 MG PO SCH (08:24)
[2017-02-02] MEDS: Nadolol TAB* 40 MG PO SCH (08:24)
[2017-02-02] MEDS: Nicotine Inhaler* 10 MG AMP INH PRN (08:32)
[2017-02-02] MEDS: OLANzapine TAB* 10 MG PO SCH (20:25)
[2017-02-03] MEDS: Gabapentin CAP(*) 400 MG PO SCH ×3 (08:38→20:58)
[2017-02-03] MEDS: Citalopram TAB* 20 MG PO SCH (08:38)
[2017-02-03] MEDS: Nadolol TAB* 40 MG PO SCH (08:38)
[2017-02-03] MEDS: Nicotine Inhaler* 10 MG AMP INH PRN (08:39)
--- NOTE | 2017-02-03 11:41 | PN ---
MHU: Group Therapy Note - Service Type Service Type: [id number] Group Psychotherapy - Cognitive Behavioral Group Therapy ( CBT):Patient was attentive and participatory in CBT programming this morning, and remained in good behavioral control. Patient expressed positive insights regarding relevant treatment interventions and goals.
--- NOTE | 2017-02-03 13:33 | PN ---
Subjective - Subjective Service Type: 66792 Hosp care 15 min low complexity Subjective: Yan is in good spirits. He complains of restlessness since starting the medicine and inability to sit still. He also c/o right-sided flank pain of several weeks' duration. Otherwise, he continues to deny SI or HI and is looking forward to transfer to [facility]. Objective - Appearance Appearance: Well Developed/Nourished Dysmorphic Features: Yes Hygiene: Normal Grooming: Fairly Well Kept - Behavior Psychomotor Activities: Abnormal-Increased Exhibits Abnormal Movement: Yes - Attitude and Relatedness Attitude and Relatedness: Cooperative Eye Contact: Good - Speech Quality: Unpressured Latencies: Normal Quantity: Appropriate - Mood Patient's Decription of Mood: "Good" - Affect Observed Affect: Good Affect Consistent with: Euthymia - Thought Process Patient's Thought Process: Coherent Thought Content: No Passive Wish, No Suicidal Planning, No Homicidal Ideation, No Paranoid Ideation - Sensorium Experiencing Hallucinations: No, Sensorium is Clear Type of Hallucinations: Visual: No, Auditory: No, Command: No - Level of Consciousness Level of Consciousness: Alert Orientation: Yes Intact, Yes Orientated to Time, Yes Orientated to Place, Yes Orientated to Person - Impulse Control Impulse Control: Tenuous - Insight and Judgement Insight and Judgement: Fair - Group Participation Particating in Group Activities: Yes - Medication Management Medication Management Adherence: Yes Assessment - Assessment Merits Inpatient Hospitalization: Consolidate Improvements, Pending Safe DC Plan 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 , white male with a history of alcohol and illicit substance abuse, as well as putative bipolar disorder, recently [facility] the [facility] on 01[facility], readmitted to the unit secondary to confusion and psychosis in the setting of overdose on OTC sedative-hypnotics purchased online. Plan - Plan Treatment Plan: Name: YAN LEE Birthdate: 1970 [id number] We have resumed medications such as gabapentin, citalopram, nadolol and olanzapine. Will decrease olanzapine to 5mg nightly for probable akathisia. Will order U/A and renal ultrasound for flank pain complaints. Patient is awaiting transfer to [facility] inpatient rehab on Friday, February 05. Continue inpatient care. Continued Medication Management: Continue Outpt Medication Medications: Current Medications Acetaminophen (Tylenol Tab*) 650 mg PO Q4H PRN PRN Reason: for pain; or Temp >101 F Last Admin: 01/25/17 12:20 Dose: 650 mg Al Hydrox/Mg Hydrox/Simethicone (Maalox Plus*) 30 ml PO Q4H PRN PRN Reason: INDIGESTION Last Admin: 01/25/17 12:22 Dose: 30 ml Citalopram Hydrobromide (Celexa Tab*) 20 mg PO DAILY [facility] Last Admin: 02/03/17 08:38 Dose: 20 mg Gabapentin (Neurontin Cap(*)) 400 mg PO TID [facility] Last Admin: 02/03/17 13:28 Dose: 400 mg Haloperidol (Haldol Tab*) 5 mg PO Q6H PRN PRN Reason: AGITATION Last Admin: 01/31/17 21:14 Dose: 5 mg Nadolol (Corgard Tab*) 40 mg PO DAILY [facility] Last Admin: 02/03/17 08:38 Dose: 40 mg Nicotine (Nicotine Inhaler*) 10 mg INH Q2H PRN PRN Reason: CRAVING Last Admin: 02/03/17 08:39 Dose: 10 mg Nicotine Polacrilex (Nicotine Gum*) 2 mg PO Q2H PRN PRN Reason: CRAVING Last Admin: 01/26/17 13:55 Dose: 2 mg Olanzapine (Zyprexa Tab*) 5 mg PO BEDTIME [facility] - Discharge Plan Discharge Plan: Drug/Alcohol Rehab
--- NOTE | 2017-02-03 16:20 | RAD ---
INDICATION: Right flank pain COMPARISON: None TECHNIQUE: Longitudinal and transverse scans of the kidneys were obtained. FINDINGS: Kidneys: The kidneys are normal in size and echogenicity. No renal masses, calculi, or hydronephrosis is seen. The right kidney measures 11.2 x 4.7 x 5.7 cm and the left kidney 11.4 x 5.4 x 3.7 cm. Other: None IMPRESSION: NORMAL EXAMINATION.
[2017-02-03] MEDS: OLANzapine TAB* 10 MG PO SCH (20:58)
[2017-02-04] MEDS: Nadolol TAB* 40 MG PO SCH (08:29)
[2017-02-04] MEDS: Gabapentin CAP(*) 400 MG PO SCH ×3 (08:29→21:05)
[2017-02-04] MEDS: Citalopram TAB* 20 MG PO SCH (08:29)
[2017-02-04 08:54] VITALS: BP 98/68
--- NOTE | 2017-02-04 11:32 | PN ---
MHU: Group Therapy Note - Service Type Service Type: [id number] Group Psychotherapy - Cognitive Behavioral Group Therapy ( CBT):Patient was attentive and participatory in CBT programming this morning, and remained in good behavioral control. Patient expressed positive insights regarding relevant treatment interventions and goals.
[2017-02-04] MEDS: Nicotine Inhaler* 10 MG AMP INH PRN (14:03)
--- NOTE | 2017-02-04 17:26 | PN ---
Subjective - Subjective Service Type: 75298 Hosp care 15 min low complexity Subjective: Yan continues to endorse restlessness consistent with treatment-emergent akathisia, despite reduction in olanzapine dose from 10 to 5mg nightly. 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 He denies SI and remains agreeable with [place] [facility] [place]. Objective - Appearance Appearance: Well Developed/Nourished Dysmorphic Features: No Hygiene: Normal Grooming: Well Kept - Behavior Psychomotor Activities: Normal Exhibits Abnormal Movement: No - Attitude and Relatedness Attitude and Relatedness: Cooperative Eye Contact: Good - Speech Quality: Unpressured Latencies: Normal Quantity: Appropriate - Mood Patient's Decription of Mood: "Good" - Affect Observed Affect: Good Affect Consistent with: Euthymia - Thought Process Patient's Thought Process: Coherent Thought Content: No Passive Wish, No Suicidal Planning, No Homicidal Ideation, No Paranoid Ideation - Sensorium Experiencing Hallucinations: No, Sensorium is Clear Type of Hallucinations: Visual: No, Auditory: No, Command: No - Level of Consciousness Level of Consciousness: Alert Orientation: Yes Intact, Yes Orientated to Time, Yes Orientated to Place, Yes Orientated to Person - Impulse Control Impulse Control: Tenuous - Insight and Judgement Insight and Judgement: Fair - Group Participation Particating in Group Activities: Yes - Medication Management Medication Management Adherence: Yes Assessment - Assessment Merits Inpatient Hospitalization: Pending Safe DC Plan 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 , white male with a history of alcohol and illicit substance abuse, as well as putative bipolar disorder, recently [facility] the [facility] on [facility], readmitted to the unit secondary to confusion and psychosis in the setting of overdose on OTC sedative-hypnotics purchased online. Plan - Plan Treatment Plan: Name: YAN LEE Birthdate: 1970 [id number] We will discontinue nadolol in favor of propranolol 20mg PO BID. Patient will remain on olanzapine, citalopram and gabapentin. Renal ultrasound for flank pain complaints was negative. Patient is awaiting [place] [facility] [place] on Friday, February 05. Continue inpatient care. Continued Medication Management: Continue Outpt Medication Medications: Current Medications Acetaminophen (Tylenol Tab*) 650 mg PO Q4H PRN PRN Reason: for pain; or Temp >101 F Last Admin: 01/25/17 12:20 Dose: 650 mg Al Hydrox/Mg Hydrox/Simethicone (Maalox Plus*) 30 ml PO Q4H PRN PRN Reason: INDIGESTION Last Admin: 01/25/17 12:22 Dose: 30 ml Citalopram Hydrobromide (Celexa Tab*) 20 mg PO DAILY [facility] Last Admin: 02/04/17 08:29 Dose: 20 mg Gabapentin (Neurontin Cap(*)) 400 mg PO TID [facility] Last Admin: 02/04/17 14:03 Dose: 400 mg Haloperidol (Haldol Tab*) 5 mg PO Q6H PRN PRN Reason: AGITATION Last Admin: 01/31/17 21:14 Dose: 5 mg Nicotine (Nicotine Inhaler*) 10 mg INH Q2H PRN PRN Reason: CRAVING Last Admin: 02/04/17 14:03 Dose: 10 mg Nicotine Polacrilex (Nicotine Gum*) 2 mg PO Q2H PRN PRN Reason: CRAVING Last Admin: 01/26/17 13:55 Dose: 2 mg Olanzapine (Zyprexa Tab*) 5 mg PO BEDTIME [facility] Last Admin: 02/03/17 20:58 Dose: 5 mg Propranolol HCl (Inderal Tab*) 10 mg PO BID [facility] - Discharge Plan Discharge Plan: Drug/Alcohol Rehab
[2017-02-04] MEDS: OLANzapine TAB* 10 MG PO SCH (21:05)
[2017-02-04] MEDS: Propranolol TAB* 10 MG PO SCH (21:06)
[2017-02-05] MEDS: Gabapentin CAP(*) 400 MG PO SCH (07:54)
[2017-02-05] MEDS: Citalopram TAB* 20 MG PO SCH (07:55)
[2017-02-05] MEDS: Propranolol TAB* 10 MG PO SCH (07:55)
--- NOTE | 2017-02-06 04:52 | DS ---
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 Bagwell II: Deferred. Bagwell III: Dhqdq-Jqzbeebiz-Pyenj syndrome. History of right shoulder surgery, history of recurrent sinusitis. Bagwell IV: Moderate primary support and financial stressors. Bagwell V: At the time of admission was 23 and at the time of discharge was 58. CONDITION AT THE TIME OF DISCHARGE: Fair. The patient is calm and cooperative. He is denying suicidal or homicidal ideations. He denies any urges to use drugs or alcohol. There is no sign of delirium, confusion, or disorientation. In fact, he is quite future oriented stating that he is looking forward to transfer to the long- term inpatient substance abuse rehabilitation facility called [facility] which is on the grounds of the [facility] in [facility]. The patient has been safe on all checks. He is tolerating his medications quite well and is agreeable with pursuing substance abuse recovery in an inpatient setting. MENTAL STATUS EXAMINATION: At the time of discharge, the patient is a middle- aged white male wearing a polo shirt and sweat pants. He is clean, well groomed , makes good eye contact. Speech has a normal rate, tone, and volume. Mood is euthymic with full affect. Thought process is linear and goal directed. Thought content is significant for his willingness to be discharged and transferred to a rehab facility. He denies suicidal or homicidal ideations. He denies auditory or visual hallucinations. Insight and judgement appeared to be fair given his willingness to follow up with rehab. Cognitively, he is awake and alert with what would appear to be an average intellect. DISCHARGE INSTRUCTIONS: To the patient are as follows: A. Medications: He is taking; 1. Propranolol 10 mg p.o. b.i.d. 2. Olanzapine 5 mg p.o. q.h.s. 3. Nicotine inhaler 10 mg inhaled every 2 hours as a p.r.n. for nicotine craving. 4. He is also taking nicotine gum 2 mg p.o. q.2 hours as a p.r.n. for nicotine craving. 5. The patient is taking Neurontin 400 mg p.o. t.i.d. 6. Celexa 20 mg p.o. daily. B. Diet: Regular. C. Activities: As per [facility] Rehab Protocol. The patient is a smoker, but he is interested in continuing his nicotine replacement therapy indicating that he would like to quit. He has accepted prescriptions for his nicotine inhaler and nicotine gum. D. Followup care. The patient will follow up with the [facility] inpatient dual diagnosis Substance Abuse Rehab Facility in [facility]. They will be responsible for all outpatient followup appointments in the community pending his discharge from that facility. E. Substance abuse followup. The patient has been referred to [facility] for substance abuse treatment. HOSPITAL COURSE: Part A: Reason for admission: The patient is a 46-year-old white male with a history of chronic substance abuse disorders and a recent history of bipolar disorder who was just discharged from the behavioral science unit on 01/10/17 who now arrives back on a 9.41 legal status secondary to bizarre confused behavior and inability to care for himself. The patient had been at [facility] on the morning of admission and had eloped when he realized that they were planning on transferring him back to [facility]. From there his parents were able to locate him in the community and drive him back to [place]. According to his parents, he appeared fine on Friday and then was unreachable on Friday and Friday showing up at their house on the morning of admission after walking 2 miles without appropriate clothing or jacket on. He kept making the statement "read my furnace" over and over again and this is when they decided to bring him back to the hospital. In our emergency room, he presented as highly confused, not able to complete sentences or communicate even single words in a coherent fashion. When he was asked where he was, he responded that he was inside an ambulance. During his initial observation he was minimizing of symptoms and declining the offer of admission. We were able to reach his current housemate, a woman named Seema, who indicated that the patient had smelled like alcohol on Friday and then slept most of the day on Friday and Friday. Thereafter, she observed that he did finally wake up on Friday for 2 hours, vomited on the floor, and then went back to sleep. The patient was not easily aroused, and when awoken, fell right back to sleep. On the morning of admission, the patient woke up again, again vomited, and was confused. His roommate looked inside his room for medications and it was difficult for her to say whether anything was missing given the fact that many of his pills were mixed together. She later called back stating that she had found a bottle of a drug called Phenibut, which is an anxiolytic that patient had ordered online on 01/15/17. Although there were 400 total servings in the bottle, the bottle was already two-thirds gone. She suspects that the patient was abusing this drug, a later review of online research indicates that Phenibut is a sedative that is available in health food stores and online pharmacies. It is similar to the prescription medication gabapentin. When I interviewed the patient, he was confused and distractible. He minimized his use of Phenibut, but does tell me that he had been abusing Valium which he had bought from a friend. I asked him if he was willing to go to rehab at this time and he declined it. The patient denies any active mood symptoms including depression, anxiety, or giuseppe. It is notable that when he was discharged on 05/24 from my service, the plan was for him to go to the [facility] in [facility]. Unfortunately, when he arrived there, he declined to sign himself in and called a friend to have them pick him up and return him to the [facility] where he was staying with his friend Seema. Part B: Psychiatric treatment rendered: The patient was admitted to the adult behavioral health unit where he was placed on q.15 minute checks for his own safety. We initially held his gabapentin given its similarities to the Phenibut that the patient was allegedly abusing. We did resume treatment with citalopram, nadolol, and olanzapine as most recently prescribed. Gradually, the patient's confusion did improve. He did complain of some right-sided flank pain for which we checked a renal ultrasound on 02/03/17; however, that was negative. Renato started complaining of symptoms that seemed to be consistent with akathisia, which is typically secondary to olanzapine treatment. For this reason, olanzapine was decreased from 10 mg to 5 mg nightly. The patient continued to complain of restlessness and so we replaced his nadolol with a trial of propranolol. They are both beta blockers and can be useful in Amrit- Parkinson-White syndrome, although propranolol is more centrally acting and tends to be helpful in cases of extrapyramidal side effects from antipsychotic medication. The patient tolerated this well. He was calm and cooperative throughout most of the hospitalization. When we confronted him on his ongoing substance abuse, he changed his mind and decided to be sent back to rehab. It is notable that both his parents and his friend Seema refused to allow him to have any housing on their property until he had completed inpatient rehab. At this time, Renato has been safe on all checks for well over a week. He is tolerating medications well and we feel like he is back to his baseline. At this time, he is ready to transition to concentrating on his substance abuse issues. [id number]/[facility] #: [id number] [place]
== END 2017-02-05 08:25 | DRG 775 ==
LOC: ED 12:33 → BSU 15:54
PROVIDERS: ADMIT Psychiatry & Neurology Psychiatry; ATTEND Psychiatry & Neurology Psychiatry
DX: F13.121 Sedative, hypnotic or anxiolytic abuse with intoxication delirium (principal); F10.10 Alcohol abuse, uncomplicated; Y90.0 Blood alcohol level of less than 20 mg/100 ml; F31.9 Bipolar disorder, unspecified; I45.6 Pre-excitation syndrome; Z79.899 Other long term (current) drug therapy; Z81.8 Family history of other mental and behavioral disorders; Z81.1 Family history of alcohol abuse and dependence; F12.10 Cannabis abuse, uncomplicated; F17.210 Nicotine dependence, cigarettes, uncomplicated
CPT/HCPCS: 36415; 70450; 76775; 80053; 80307; 80320; 80329; 81003; 84443; 85025; 90686; 93005; A9270-GY; G0480